=== PATIENT | male | born 1965 | race African-American/Black ===

== ENCOUNTER 2017-01-11 18:53 | Inpatient (IN) | payer BC ==
[2017-01-11] VITALS (31 sets, daily range): BP systolic 126–146; BP diastolic 89–99; PULSE 90–92; TEMP 98.4–98.6; O2SAT 91–97
[~2017-01-11] VITALS: Ht 177.8 cm; Wt 85.3 kg
[2017-01-11] MEDS ORDERED: NORVASC 10MG10 MG PO (19:05)
[2017-01-11] MEDS ORDERED: HYDRODIURIL50 MG PO (19:06)
[2017-01-11] MEDS ORDERED: TENORMIN 5050 MG/TAB PO (19:06)
[2017-01-11] MEDS ORDERED: PRAVACHOL80 MG PO (19:07)
[2017-01-11] MEDS ORDERED: ATIVAN 1MG T1 MG/TAB PO (19:08)
[2017-01-11] MEDS ORDERED: MIRALAX PA17 GM/Dose PO (19:08)
[2017-01-11 19:39] LABS: ADJUSTED CALCIUM 8.8 mg/dL (8.4-10.2); BILIRUBIN,TOTAL 4.3 mg/dL (0.0-1.0); CALCIUM 8.8 mg/dL (8.4-10.2); CREATININE, serum 1.46 mg/dL (0.66-1.25); POTASSIUM 3.6 mmol/L (3.4-5.0)
[2017-01-11 19:40] LABS: HEMATOCRIT 41.9 % (42.0-52.0); HEMOGLOBIN 14.3 g/dl (13.5-18.0); MEAN CELL VOLUME 90 fl (80.0-100.0); MEAN CORPUSCULAR HEMOGLOBIN 31 pg (27.0-31.0); MEAN CORPUSCULAR HGB CONC 34 g/dl (33.0-37.0); MEAN PLATELET VOLUME 11.9 fl (7.4-10.4); PLATELET COUNT 152 K/mm3 (130-400); RED BLOOD COUNT 4.66 M/mm3 (4.20-5.60); REDCELL DISTRIBUTION WIDTH-CV 16.4 % (11.5-14.5); WHITE BLOOD COUNT 17.4 K/mm3 (4.8-10.8)
[2017-01-11 19:41] LABS: ADD PATHOLOGY DIFF REVIEW NO
[2017-01-11 19:52] LABS: BAND 4 % (0-10); NEUTROPHILS 89 % (42.0-75.2); TOTAL CELLS COUNTED 100
[2017-01-11 19:56] LABS: ANISOCYTOSIS 1+; HYPOCHROMIA 1+; POIKILOCYTOSIS 2+; POLYCHROMASIA 1+; STOMATOCYTE 2+
[2017-01-11 20:15] LABS: INR 1.4 (0.8-3.0); PROTHROMBIN TIME 15.4 SECONDS (9.7-12.8)
[2017-01-12] VITALS (749 sets, daily range): BP systolic 135–153; BP diastolic 94–111; PULSE 82–118; TEMP 97.4–98.4; O2SAT 65–100
[2017-01-12 03:26] LABS: PH 5 (5-8); URINE APPEARANCE Hazy; URINE BACTERIA Rare /hpf; URINE BILIRUBIN Negative (NEGATIVE); URINE BLOOD 2+ (NEGATIVE); URINE COLOR Amber; URINE GLUCOSE 1+ (NEGATIVE); URINE KETONE Trace (NEGATIVE); URINE UROBILINOGEN Negative (NEGATIVE)
[2017-01-12 03:31] LABS: AMPHETAMINE URINE NEGATIVE; BARBITURATES URINE NEGATIVE; BENZODIAZEPINES URINE POSITIVE; BUPRENORPHINE URINE NEGATIVE; METHADONE URINE NEGATIVE; OPIATES URINE POSITIVE; OXYCODONE URINE NEGATIVE; PHENCYCLIDINE URINE NEGATIVE; PROPOXYPHENE URINE NEGATIVE; THC CANNABINOIDS URINE NEGATIVE
[2017-01-12 06:22] LABS: CALCIUM 7.9 mg/dL (8.4-10.2); CREATININE, serum 1.18 mg/dL (0.66-1.25); POTASSIUM 3.1 mmol/L (3.4-5.0)
[2017-01-12 06:25] LABS: MEAN CELL VOLUME 91 fl (80.0-100.0); MEAN CORPUSCULAR HGB CONC 34 g/dl (33.0-37.0); MEAN PLATELET VOLUME 12.6 fl (7.4-10.4); PLATELET COUNT 104 K/mm3 (130-400); RED BLOOD COUNT 3.83 M/mm3 (4.20-5.60); REDCELL DISTRIBUTION WIDTH-CV 16.7 % (11.5-14.5); WHITE BLOOD COUNT 10.6 K/mm3 (4.8-10.8)
[2017-01-12 06:36] LABS: MAGNESIUM 2.6 mg/dL (1.6-2.3)
[2017-01-12 06:55] LABS: HEMATOCRIT 34.9 % (42.0-52.0); HEMOGLOBIN 11.8 g/dl (13.5-18.0); MEAN CORPUSCULAR HEMOGLOBIN 31 pg (27.0-31.0)
[2017-01-12 07:21] LABS: BAND 17 % (0-10); METAMYELOCYTE 1 % (0-0); NEUTROPHILS 72 % (42.0-75.2); TOTAL CELLS COUNTED 100
[2017-01-12 07:36] LABS: ADD PATHOLOGY DIFF REVIEW YES; ANISOCYTOSIS 1+; MICROCYTOSIS 1+; TARGET CELLS 2+
[2017-01-12 07:37] LABS: STOMATOCYTE 1+
[2017-01-12 08:18] LABS: PATHOLOGY DIFF REVIEW OK +
[2017-01-13] VITALS (679 sets, daily range): BP systolic 123–155; BP diastolic 11–109; PULSE 112–132; TEMP 98.4–99.2; O2SAT 60–100
[2017-01-13 05:58] LABS: MEAN CELL VOLUME 93 fl (80.0-100.0); MEAN CORPUSCULAR HGB CONC 33 g/dl (33.0-37.0); MEAN PLATELET VOLUME 11.4 fl (7.4-10.4); PLATELET COUNT 110 K/mm3 (130-400); RED BLOOD COUNT 3.49 M/mm3 (4.20-5.60); REDCELL DISTRIBUTION WIDTH-CV 16.7 % (11.5-14.5); WHITE BLOOD COUNT 8.9 K/mm3 (4.8-10.8)
[2017-01-13 06:12] LABS: HEMATOCRIT 32.5 % (42.0-52.0); HEMOGLOBIN 10.6 g/dl (13.5-18.0); MEAN CORPUSCULAR HEMOGLOBIN 30 pg (27.0-31.0)
[2017-01-13 06:13] LABS: ADD PATHOLOGY DIFF REVIEW NO
[2017-01-13 06:15] LABS: ADJUSTED CALCIUM 8.7 mg/dL (8.4-10.2); BILIRUBIN,TOTAL 2.3 mg/dL (0.0-1.0); CALCIUM 7.9 mg/dL (8.4-10.2); CREATININE, serum 0.87 mg/dL (0.66-1.25); POTASSIUM 3.1 mmol/L (3.4-5.0); TOTAL PROTEIN 6.5 gm/dL (6.4-8.2)
[2017-01-13 06:19] LABS: ALBUMIN 2.8 gm/dL (3.5-5.0); BILIRUBIN,DIRECT 1.7 mg/dL (0.0-0.4); BILIRUBIN,TOTAL 2.2 mg/dL (0.0-1.0); TOTAL PROTEIN 5.7 gm/dL (6.4-8.2)
[2017-01-13 07:11] LABS: BAND 21 % (0-10); METAMYELOCYTE 1 % (0-0); NEUTROPHILS 68 % (42.0-75.2); TOTAL CELLS COUNTED 100
[2017-01-14] VITALS (603 sets, daily range): BP systolic 109–155; BP diastolic 81–112; PULSE 96–122; TEMP 97.5–99.2; O2SAT 61–100
[2017-01-14 10:05] LABS: BASO # 0.1 (0.0-0.2); BASO % 0.5 % (0.0-2.0); EOS % 0.4 % (0-4.0); GRAN # 6.8 (1.4-6.5); GRAN % 72.2 % (42.2-75.2); LYMPH # 1.2 (1.2-3.4); LYMPH % 12.9 % (20.0-51.0); MEAN CELL VOLUME 94 fl (80.0-100.0); MEAN CORPUSCULAR HGB CONC 32 g/dl (33.0-37.0); MEAN PLATELET VOLUME 10.3 fl (7.4-10.4); MONO # 1.2 (0.1-0.6); MONO % 12.6 % (1.7-9.3); PLATELET COUNT 154 K/mm3 (130-400); RED BLOOD COUNT 3.77 M/mm3 (4.20-5.60); REDCELL DISTRIBUTION WIDTH-CV 16.5 % (11.5-14.5); WHITE BLOOD COUNT 9.4 K/mm3 (4.8-10.8)
[2017-01-14 10:07] LABS: HEMATOCRIT 35.4 % (42.0-52.0); HEMOGLOBIN 11.3 g/dl (13.5-18.0); MEAN CORPUSCULAR HEMOGLOBIN 30 pg (27.0-31.0)
[2017-01-14 10:09] LABS: ADJUSTED CALCIUM 8.8 mg/dL (8.4-10.2); ALBUMIN 3.2 gm/dL (3.5-5.0); BILIRUBIN,TOTAL 2.7 mg/dL (0.0-1.0); CALCIUM 8.2 mg/dL (8.4-10.2); CREATININE, serum 0.78 mg/dL (0.66-1.25); POTASSIUM 3.5 mmol/L (3.4-5.0)
[2017-01-15] VITALS (12 sets, daily range): BP systolic 130–166; BP diastolic 48–108; PULSE 76–122; TEMP 97.4–98.4
[2017-01-15 09:14] LABS: MEAN CELL VOLUME 93 fl (80.0-100.0); MEAN CORPUSCULAR HGB CONC 33 g/dl (33.0-37.0); MEAN PLATELET VOLUME 10.6 fl (7.4-10.4); PLATELET COUNT 179 K/mm3 (130-400); RED BLOOD COUNT 3.62 M/mm3 (4.20-5.60); REDCELL DISTRIBUTION WIDTH-CV 16.2 % (11.5-14.5); WHITE BLOOD COUNT 6.5 K/mm3 (4.8-10.8)
[2017-01-15 09:15] LABS: HEMATOCRIT 33.6 % (42.0-52.0); HEMOGLOBIN 11.1 g/dl (13.5-18.0); MEAN CORPUSCULAR HEMOGLOBIN 31 pg (27.0-31.0)
[2017-01-15 09:16] LABS: ADD PATHOLOGY DIFF REVIEW NO
[2017-01-15 09:27] LABS: ADJUSTED CALCIUM 9.2 mg/dL (8.4-10.2); ALBUMIN 3.2 gm/dL (3.5-5.0); BILIRUBIN,TOTAL 2.3 mg/dL (0.0-1.0); CALCIUM 8.6 mg/dL (8.4-10.2); CREATININE, serum 0.8 mg/dL (0.66-1.25); POTASSIUM 3.1 mmol/L (3.4-5.0); TOTAL PROTEIN 6.9 gm/dL (6.4-8.2)
[2017-01-15 09:32] LABS: BAND 7 % (0-10); BASOPHIL 1 % (0-2); METAMYELOCYTE 1 % (0-0); NEUTROPHILS 54 % (42.0-75.2); TOTAL CELLS COUNTED 100
[2017-01-15 09:34] LABS: ANISOCYTOSIS 1+; POLYCHROMASIA 1+; STOMATOCYTE 2+; TARGET CELLS 1+
[2017-01-16 00:36] VITALS: BP 147/104; PULSE 123; TEMP 99
[2017-01-16 02:09] VITALS: BP 151/96; PULSE 125; TEMP 99.2
[2017-01-16 04:19] VITALS: BP 147/106; PULSE 112; TEMP 98.8
[2017-01-16 07:54] LABS: ADJUSTED CALCIUM 9.4 mg/dL (8.4-10.2); ALBUMIN 2.9 gm/dL (3.5-5.0); BILIRUBIN,TOTAL 1.5 mg/dL (0.0-1.0); CALCIUM 8.5 mg/dL (8.4-10.2); CREATININE, serum 0.7 mg/dL (0.66-1.25); MAGNESIUM 1.4 mg/dL (1.6-2.3); TOTAL PROTEIN 6.3 gm/dL (6.4-8.2)
[2017-01-16 08:01] LABS: POTASSIUM 2.9 mmol/L (3.4-5.0)
[2017-01-16 08:21] VITALS: BP 147/101; PULSE 118; TEMP 98.2
[2017-01-16] MEDS ORDERED: MAG-OX 400400 MG/TAB PO (09:57)
[2017-01-16] MEDS ORDERED: K-TAB20 PO (10:08)
[2017-01-16] MEDS ORDERED: HCTZ 25MG TAB25 MG PO (10:10)
[2017-01-16 10:12] VITALS: BP 126/90; PULSE 116; TEMP 99
[2017-01-16 12:12] VITALS: BP 132/94; PULSE 97; TEMP 98.9
== END 2017-01-16 14:37 | disposition home or self-care (01) | DRG 871 ==
LOC: COL.ER 18:53 → ICU 21:34 → MEDICAL 01-14 10:56
PROVIDERS: Emergency Medicine; Internal Medicine; Nurse Practitioner Family
DX: A41.9 Sepsis, unspecified organism (principal); K85.20 Alcohol induced acute pancreatitis without necrosis or infection; F10.231 Alcohol dependence with withdrawal delirium; N17.9 Acute kidney failure, unspecified; I10 Essential (primary) hypertension; E83.42 Hypomagnesemia; K70.0 Alcoholic fatty liver; K70.10 Alcoholic hepatitis without ascites; E87.6 Hypokalemia
CPT/HCPCS: 99223-AI; 99232-AI; 99233-AI; 99239; J1170; J1644; J1815; J1940; J1956; J2060; J2405; J3360; J3411; J3475; J3480; J7030; Q9967